=== PATIENT | female | born 1965 ===

== ENCOUNTER 2023-04-03 10:27 | Outpatient (REF) | payer OTHER, SELFPAY ==
--- NOTE | ~2023-04-03 | XR_ITS ---
EXAMINATION: XR KNEE, LEFT CLINICAL INFORMATION: Pain. COMPARISON: None available. TECHNIQUE: AP, lateral and sunrise views of the left knee. FINDINGS: Prosthetic components of the total knee arthroplasty are appropriately aligned without periprosthetic fracture or abnormal lucency. No component migration. No joint effusion. XR/XR knee LT 3V IMPRESSION: Appropriate alignment of the left total knee arthroplasty without evidence of complications.
== END 2023-04-03 10:28 | disposition home or self-care (01) ==
LOC: HO.HOSX 10:27
PROVIDERS: Visit Provider Orthopaedic Surgery
DX: M25.562 Pain in left knee (principal)
CPT/HCPCS: 73562; 99202

== ENCOUNTER 2023-04-03 14:04 | Outpatient (AMB) | payer OTHER, SELFPAY ==
[2023-04-03 14:35] VITALS: BMI 36.0
--- NOTE | 2023-04-03 14:35 | MHC.OFFVIS ---
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 The patient did undergo left total knee replacement surgery while living in [place] in 2016. She denies any fevers or chills. She states that her pain has gotten worse over the last 6 months. She has taken Tylenol and anti-inflammatory medicines which gave her minimal relief. She does report an intermittent popping sensation. She has tried wearing a knee brace which gave her only mild relief. Allergies latex Allergy (Intermediate, Verified 04/03/23 14:38) Rash Medication List - Last Reconciled 04/03/23 by Tyrel Ivey MD aripiprazole 10 mg PO DAILY cholecalciferol (vitamin D3) (Vitamin D3) 25 mcg PO DAILY estradiol-norethindrone acet 0.05-0.25 mg/24 hr (CombiPatch) patches transdermal fluticasone propionate 50 mcg/actuation sprays intranasal hydrochlorothiazide 25 mg PO DAILY lorazepam 1 mg PO DAILY PRN meloxicam 15 mg PO DAILY nitroglycerin mg sublingual oxycodone mg PO DAILY pantoprazole 40 mg PO DAILY [facility] Surgical History (Updated 04/03/23 @ 14:52 by Henrietta Cruz CMA) Hx of right knee surgery (~01/2018) History of thyroid surgery (~2019) History of hand surgery (Unknown) History of left knee surgery (07/30/15) Social History (Updated 04/03/23 @ 14:40 by Henrietta Cruz CMA) Patient Tobacco Use Status: Current everyday Tobacco user Physical Exam Vital Signs: BMI result Body Mass Index 36.0 Const Other: Well-nourished well-developed very friendly female awake alert and oriented x3 in no acute distress Extrem Other: Bilateral lower extremity examination shows good capillary refill, no skin lesions noted, normal sensation light touch Left knee examination shows that the surgical incision is well healed, no erythema, full active extension and flexion to 115 degrees with minimal discomfort, her patella tracks well, tenderness along her medial joint line Results Reviewed Results Reviewed: X-rays of the patient's left knee show a total knee arthroplasty in good position, there is a small amount of lucency around the medial and lateral aspects of the tibial tray, no gross shift of the implants Assessment & Plan Assessment & Plan (1) Left knee pain: Code(s): M25.562 - Pain in left knee Plan Ms. Alejandre presents with left knee pain after undergoing left total knee replacement surgery while living in [place] in 2015 of unclear etiology. The patient does not have any indication of infection. She may have aseptic loosening of her tibial component. Thus, I will send her for a CT scan for further evaluation. I will see her back once the CT scan is completed to discuss the findings. She will contact me prior to that time should her symptoms worsen in any way. I spent 22 minutes in reviewing the patient's records and imaging studies, seeing the patient and documenting in the medical record. Orders: Orders XR knee LT 3V Today M25.562 - Pain in left knee CT knee LT wo IV con Today M25.562 - Pain in left knee Coding Level of Care Code New Pt Level 2 (30114) Diagnoses Left knee pain M25.562
== END 2023-04-03 14:58 | disposition home or self-care (01) ==
PROVIDERS: Visit Provider Orthopaedic Surgery
DX: M25.562 Pain in left knee (principal)
CPT/HCPCS: 99202

== ENCOUNTER 2023-05-24 13:51 | Outpatient (AMB) | payer OTHER, SELFPAY ==
--- NOTE | 2023-05-24 13:53 | A.OFFVIS_ITS ---
Intake Vital Signs 05/24/23 13:54 Height 5 ft 7 in Weight 230 lb BMI 36.0 Intake Visit Reasons: OV- CT Scan review Intake Note: Isabelle is a 57 year old female who presents as a new patient with complaints of left knee pain. The patient did undergo left total knee replacement surgery while living in [place] in 2016. She denies any fevers or chills. She states that her pain has gotten worse over the last 6 months. She has taken Tylenol and anti-inflammatory medicines which gave her minimal relief. She does report an intermittent popping sensation. She has tried wearing a knee brace which gave her only mild relief. Allergies latex Allergy (Intermediate, Verified 04/03/23 14:38) Rash Medication List - Last Reconciled 05/24/23 by Tyrel Ivye MD aripiprazole 10 mg PO DAILY cholecalciferol (vitamin D3) (Vitamin D3) 25 mcg PO DAILY estradiol-norethindrone acet 0.05-0.25 mg/24 hr (CombiPatch) patches transdermal fluticasone propionate 50 mcg/actuation sprays intranasal hydrochlorothiazide 25 mg PO DAILY lorazepam 1 mg PO DAILY PRN meloxicam 15 mg PO DAILY nitroglycerin mg sublingual oxycodone mg PO DAILY pantoprazole 40 mg PO DAILY [facility] Surgical History (Updated 04/03/23 @ 14:52 by Henrietta Cruz CMA) Hx of right knee surgery (~01/2018) History of thyroid surgery (~2019) History of hand surgery (Unknown) History of left knee surgery (07/30/15) Social History (Updated 04/03/23 @ 14:40 by Henrietta Cruz CMA) Patient Tobacco Use Status: Current everyday Tobacco user Physical Exam Vital Signs: BMI result Body Mass Index 36.0 Const Other: Well-nourished well-developed very friendly female awake alert and oriented x3 in no acute distress Extrem Other: Bilateral lower extremity examination shows good capillary refill, no skin lesions noted, normal sensation light touch Left knee examination shows that the surgical incision is well healed, no erythema, minimal crepitus with range of motion, tenderness along the medial aspect of her patella, no overlying skin lesions, no instability, full active extension and flexion to 115 degrees with mild discomfort Results Reviewed Results Reviewed: CT scan of the patient's left knee shows a total knee arthroplasty in good position with no signs of loosening, the reading states that there is a possible lucent line around the patellar component although I do not appreciate this when reviewing the images myself Assessment & Plan Assessment & Plan (1) Left knee pain: Code(s): M25.562 - Pain in left knee Plan Ms. Alejandre presents with discomfort in her left knee after undergoing left total knee replacement surgery in [place] in 2016 of unclear etiology. Although the CT scan report does mention possible lucency around the patellar component I do not appreciate this when reviewing the images myself. The patient's symptoms may be due to scar tissue. The patient wishes to avoid revision surgery if possible. I agree with this plan. I will arrange for the patient to have a follow-up appointment with Dr. Amaro from the pain management group. [facility] to see if she might be a candidate for a nerve block procedure. If the patient's symptoms do not improve in the future I will have her get a 2nd opinion from my partner, Dr. Fuentes, who could further discuss the risks and benefits of patellar component revision versus scar tissue excision with her. The patient will follow-up as instructed. I spent 22 minutes in reviewing the patient's records and imaging studies, seeing the patient and documenting in the medical record. Orders: Referrals Pain Management Referral M25.562 - Pain in left knee Coding Level of Care Code Est Pt Level 2 (35387) Diagnoses Left knee pain M25.562
[2023-05-24 13:54] VITALS: BMI 36.0
== END 2023-05-24 14:13 | disposition home or self-care (01) ==
PROVIDERS: Visit Provider Orthopaedic Surgery
DX: M25.562 Pain in left knee (principal); Z96.652 Presence of left artificial knee joint
CPT/HCPCS: 99213

== ENCOUNTER → 2023-05-24 13:51 | Outpatient (BNVA) | payer OTHER, SELFPAY | PROVIDERS: Visit Provider Orthopaedic Surgery | DX: M25.562 Pain in left knee (principal) | CPT/HCPCS: 99212 ==